=== PATIENT | female | born 1970 | race Caucasian/White ===

== ENCOUNTER 2016-11-19 01:06 | Emergency (ER) | payer OTHER ==
[~2016-11-19] VITALS: Ht 165.1 cm; Wt 59.1 kg
[~2016-11-19 01:06] MED LIST: BUSP15TA3 PO; FLUO20CA25 PO; MELO-253 PO; OSLT75C PO; PREN1TAB25 PO; Thiamine PO
[2016-11-19 01:08] VITALS: BP 135/89; PULSE 105; RESP 16; O2SAT 96
--- NOTE | 2016-11-19 01:17 | ED.REPORT ---
HPI-General Illness Date of Service Nov 19, 2016 ED Provider: Dr. Dong Pt is a 46 year old female with a hx of alcohol abuse presenting to the ED stating that she wants to go to detox. The pt reports that someone already spoke to the Crisis [facility]. She is concerned because she has had seizures with detox in the past. She reports that her last alcohol was yesterday. She states that she was seen here a few days ago, and had not drank alcohol for months until she went on a weekend binge a little while ago. Nursing Notes Stated Complaint: DETOX Chief Complaint: Substance Abuse Nursing Notes Reviewed: Yes Allergies: Coded Allergies: No Known Allergies (Verified Allergy, Unknown, 05/10/16) Scheduled ([Thiamine]) 100 MG TABLET 100 MG PO DAILY Buspirone (Buspirone) 15 Mg Tablet 15 MG PO BID Fluoxetine (Fluoxetine) 20 Mg Capsule 40 MG PO DAILY Meloxicam (Meloxicam) 15 Mg Tablet 7.5-15 MG PO DAILY Vit#96/Ferrous Fum/FA ( Tablet) 1 Each Tablet 1 TABLET PO DAILY General Time Seen by MD: 01:16 Chief Complaint Other (Detox) Hx Obtained From: Patient Arrived By: Walk-in Sudden in Onset?: No Onset Occurred: Yesterday Symptom Duration: Since onset Severity: Current: No pain currently Severity: Maximum: No pain Recent Healthcare: No recent hospitalization, Recent doctor visit Similar Sx Previous: Yes Past Medical History Past Medical History Alcohol abuse with withdrawal seizures Blind in right eye Reports: GERD Past Surgical History Reports none Family History noncontributory Smoking History Never Smoker Social History Alcohol Use: >5 per day Drug Use: Denies drug use Other Social History: Homeless Ambulatory Status Independent Review of Systems Alcohol abuse Full Review of Systems GI: Denies: Abdominal pain, Vomiting Female: Denies: Dysuria Neurologic: Denies: Headache, Weakness Complete sys rev & neg: except as marked. Physical Exam Vital Signs Vital Signs Date Time Temp Pulse Resp B/P Pulse Ox O2 Delivery O2 Flow Rate FiO2 11/19/16 08:49 112 118/92 98 Room Air 11/19/16 06:06 37.2 104 18 123/77 99 Room Air 11/19/16 03:00 36.8 94 16 119/71 97 Room Air 11/19/16 01:08 36.8 105 16 135/89 96 Room Air Initial VS: Reviewed, Vital signs abnormal Head / Eyes: Atraumatic, Normocephalic, PERRL ENT: Mucous membranes moist, Conjunctiva normal, No scleral icterus Neck: Supple, Non-tender, Full range of motion Respiratory: No respiratory distress Abdomen / GI: No distention Extremities: Vascular intact, Neuro intact, No swelling, No tenderness Skin: Warm, Dry, No cyanosis Neurologic: Alert, Oriented, Nonfocal Psychiatric: Mood/affect normal, Behavior normal, Normal thought content General/Constitutional: Awake, Alert A little bit anxious. No tremor. Interpretation & Diagnostics Lab Results Interpretation Test 11/19/16 01:40 Urine Color Yellow (YELLOW) Urine Appearance Hazy (CLEAR,HAZY) Urine pH 8.0 (5.0-8.0) Urine Specific Hardesty 1.010 (1.003-1.035) Urine Protein Negativemg/dL (NEG,TRACE) Urine Glucose (UA) Negativemg/dL (NEGATIVE) Urine Ketones Negativemg/dL (NEGATIVE) Urine Occult Blood Negative (NEGATIVE) Urine Nitrite Negative (NEGATIVE) Urine Bilirubin Negative (NEGATIVE) Urine Urobilinogen Normalmg/dL (NORMAL) Urine Leukocyte Esterase Small (NEGATIVE) Urine RBC 0-2/hpf (0-2) Urine WBC 11-50/hpf (0-5) Urine Epithelial Cells Few/hpf (NONE-MOD) Urine Crystals Amorphous phosphates Urine Bacteria Few/hpf (NONE-FEW) Urine Hyaline Casts None/lpf (NONE) Urine Granular Casts None seen (NONE SEEN) Urine Waxy Casts None seen (NONE SEEN) Urine Red Blood Cell Casts None seen (NONE SEEN) Urine White Blood Cell Casts None seen (NONE SEEN) Urine Mucus Present (None Seen) Urine Trichomonas None seen (NONE SEEN) Urine Yeast None (NONE SEEN) Urinalysis Comment None Urine Culture Reflexed Indicated Hold Urine Received (Received) Re-Eval/Medical Decision Med Decision/Clinical Course 46-year-old female who was initially evaluated by Dr. Dong. Arrangements were made to get for her to go to [facility], but she missed therefore clock transfer time so now cannot go until 9:00. She will be sent there with a tapering dose of Ativan here and she was also found to have a UTI and was discharged with the nitrofurantoin prepack. Time of Eval: 01:54 Patient Status: Condition improved Re-Evaluation/Progress Note: Discussed plan for discharge and plan for pt to go to detox. She understands and agrees with plan. Counseled Regarding: Diagnosis, Lab results, Need for follow-up, When/why to return to ED Discharge & Departure Primary Impression: Alcohol abuse Additional Impression: UTI (urinary tract infection) Urinary tract infection type: acute cystitis Hematuria presence: without hematuria Qualified Code: N30.00 - Acute cystitis without hematuria Disposition: Home Discharge Condition All VS Reviewed: Yes Condition: Improved Patient Instructions: Alcohol Intoxication (GEN), Urinary Tract Infection in Women (ED) Additional Instructions: Proceed to sobering services. Take the Ativan taper as directed. Absolutely no alcohol or driving while taking the Ativan. Follow up in 72 hours for urine results. Good luck with your alcohol detox! You also have a urinary tract infection. You have been provided with nitrofurantoin, 100 milligrams by mouth twice a day for 10 days, #20 dispensed. Culture is pending to prove whether this is the proper antibiotic or not. Drink plenty of fluids. Get your urine rechecked once the medication is gone to make sure the infection is also gone. Referrals: [facility] (PCP) [facility] Florencia Attestation Portions of this note were transcribed by Namrata Diana. I, Dr. Dong personally performed the history, physical exam and medical decision-making; I reviewed and confirmed the accuracy of the information in the transcribed note. Signed by : Florencia Hurley, 11/19/2016 and 0214. copies to: [facility] Gonzalo Dong DO Nov 19, 2016 01:17 NAMRATA DIANA Nov 19, 2016 01:39 Thierry Esquivel MD Nov 19, 2016 05:40
[2016-11-19] MEDS ORDERED: _LORazepam 2 MG Tablet PO SCH (01:45)
[2016-11-19] MEDS ORDERED: Multivit-Miner-Folic Acid-Iron Tablet PO ONE (01:45)
[2016-11-19 02:02] LABS: APPEARANCE,URINE HAZY (CLEAR,HAZY); COLOR,URINE YELLOW (YELLOW); OCCULT BLOOD,URINE NEGATIVE (NEGATIVE); UROBILINOGEN,URINE NORMAL (NORMAL)
[2016-11-19 03:00] VITALS: BP 119/71; PULSE 94; RESP 16; O2SAT 97
[2016-11-19] MEDS ORDERED: _Ondansetron ODT 4 mg Tablet PO PRN (03:10)
[2016-11-19] MEDS ORDERED: LORazepam 1 mg Tablet PO ONE (04:35)
[2016-11-19] MEDS ORDERED: Ondansetron 8 mg ODT Tablet PO ONE (04:40)
[2016-11-19 06:06] VITALS: BP 123/77; PULSE 104; RESP 18; O2SAT 99
[2016-11-19] MEDS ORDERED: _Nitrofurantoin Macrocrystal 100 mg Capsule PO SCH (08:30)
[2016-11-19 08:49] VITALS: BP 118/92; PULSE 112; O2SAT 98
== END 2016-11-19 08:47 | disposition home or self-care (01) ==
LOC: SED 01:06
DX: F10.10 Alcohol abuse, uncomplicated (principal); N30.00 Acute cystitis without hematuria; K21.9 Gastro-esophageal reflux disease without esophagitis

== ENCOUNTER 2017-01-24 18:10 | Emergency (ER) | payer OTHER ==
[~2017-01-24 18:10] MED LIST changes: -OSLT75C PO
== END 2017-01-24 18:55 | disposition left against medical advice (07) ==
LOC: SED 18:10
DX: Z53.21 Procedure and treatment not carried out due to patient leaving prior to being seen by health care provider (principal)

== ENCOUNTER 2017-03-20 12:52 | Emergency (ER) | payer OTHER ==
[~2017-03-20] VITALS: Ht 165.1 cm; Wt 63.6 kg
[2017-03-20 13:10] VITALS: BP 153/102; PULSE 95; RESP 18; O2SAT 97
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
[2017-03-20] MEDS ORDERED: Ondansetron 8 mg ODT Tablet PO ONE (17:55)
[2017-03-20] MEDS ORDERED: LORazepam 1 mg Tablet PO ONE (18:30)
[2017-03-20 21:17] VITALS: BP 118/74; PULSE 84; RESP 14; O2SAT 99
== END 2017-03-20 21:20 | disposition home or self-care (01) ==
LOC: SED 12:52
DX: S01.01XA Laceration without foreign body of scalp, initial encounter (principal); F10.129 Alcohol abuse with intoxication, unspecified; W25.XXXA Contact with sharp glass, initial encounter; Y93.89 Activity, other specified; Y92.098 Other place in other non-institutional residence as the place of occurrence of the external cause; I10 Essential (primary) hypertension; Z87.891 Personal history of nicotine dependence; Z79.899 Other long term (current) drug therapy

== ENCOUNTER 2017-03-31 16:06 | Emergency (ER) | payer OTHER ==
[~2017-03-31] VITALS: Ht 162.6 cm; Wt 63.6 kg
[2017-03-31 16:28] VITALS: BP 141/91; PULSE 113; RESP 18; O2SAT 98
[2017-03-31] MEDS ORDERED: Ondansetron 8 mg ODT Tablet PO ONE ×2 (17:35→22:55)
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
[2017-03-31 19:30] VITALS: BP 140/62; PULSE 113; RESP 18; O2SAT 99
[2017-03-31 21:03] LABS: BASOPHILS % (AUTO) 1.8 % (0-3); EOSINOPHILS % (AUTO) 0.2 % (0-5); MONOCYTES % (AUTO) 8.6 % (4-12); Mean Corpuscular Hemoglobin 30.1 pg (27.0-35.0); Mean Corpuscular Volume 86.8 fL (81-100); NEUTROPHILS % (AUTO) 65.2 % (40-74); Platelet Count 428 bil/L (150-400)
[2017-04-01 01:20] VITALS: BP 145/97; PULSE 115; O2SAT 100
[2017-04-01] MEDS ORDERED: 0.9% Sodium Chloride 1,000 ML IV ONE (02:35)
[2017-04-01] MEDS ORDERED: Promethazine Inj 12.5 MG in 0.9% Sodium Chloride-Pha MIX 100 ML IV ONE (02:35)
[2017-04-01] MEDS ORDERED: LORazepam 2 mg Tablet PO ONE (05:30)
[2017-04-01 05:42] VITALS: BP 153/96; PULSE 106; RESP 18; O2SAT 97
== END 2017-04-01 05:49 | disposition home or self-care (01) ==
LOC: SED 16:06 → EDBD 16:06 → SED 04-01 05:49
DX: F10.239 Alcohol dependence with withdrawal, unspecified (principal); I10 Essential (primary) hypertension; K21.9 Gastro-esophageal reflux disease without esophagitis; F32.9 Major depressive disorder, single episode, unspecified; Z59.0 Homelessness; Z87.891 Personal history of nicotine dependence
CPT/HCPCS: 36415; 80053; 81002; 81025; 82075; 84443; 85025; 96361; 96374; 99284; G0480; J2550